=== PATIENT | female | born 1980 | race Caucasian/White ===

== ENCOUNTER 2017-04-25 12:21 | Emergency (ER) | payer OTHER ==
[~2017-04-25] VITALS: Ht 154.9 cm; Wt 72.7 kg
[~2017-04-25 12:21] MED LIST: ALBU17AE22 INH; ALBU8.5H4 IH; BUSP5TAB3 PO; Docusate Sodium PO; Ibuprofen PO; Oxycodone/Acetaminophen PO; PREN1TAB73 PO
[2017-04-25 12:29] VITALS: BP 120/79; PULSE 91; RESP 12; O2SAT 97
--- NOTE | 2017-04-25 14:41 | ED.REPORT ---
HPI-Back Pain Under 40 Date of Service April 25, 2017 ED Provider: Shakir Shaw DO The patient is a 36 year old female who presents to the emergency department complaining of worsening mid-back pain that has been constant over the last 2 weeks. The pain is similar in character and location to her chronic pain but the severity has increased over the last 2 weeks. She has had some bladder incontinence intermittently. She states she has urinated without feeling the urge to urinate. She has also noticed right foot numbness that was worse today. Yesterday when she was walking she felt like her legs were going to give out. The patient also reports episodes of pelvic "numbness and tightness" that has been going on for some time. She denies bowel incontinence, fever, chills or dysuria. She has been constipated over the last several days as well. She took Ativan prior to arrival because she does not do well with MRIs. Nursing Notes Stated Complaint: CAUDA EQUINA SYNDROME Chief Complaint: Back Pain or Injury Nursing Notes Reviewed: Yes Allergies: Coded Allergies: Sulfa (Sulfonamide Antibiotics) (Verified Allergy, Mild, rash, 04/25/17) Penicillins (Verified Allergy, Unknown, 06/26/11) amoxicillin (Verified Allergy, Unknown, 06/26/11) Scheduled ([Docusate Sodium]) 100 MG CAPSULE 100 MG PO BID Albuterol-Expunged Drug, Do Not Renew! (Albuterol-Expunged Drug, Do Not Renew!) 8.5 Gm Aero 8.5 GM INH PRN Buspirone (Buspirone) 5 Mg Tablet 5 MG PO TID Vit/Iron Fumarate/FA ( Vitamin Tablet) 1 Each Tablet 1 EACH PO DAILY Scheduled PRN ([Ibuprofen]) 800 MG TABLET 800 MG PO Q6H PRN PRN For Pain ([Oxycodone/Acetaminophen]) 1 TAB TABLET 1-2 TAB PO Q4H PRN PRN For Pain Albuterol HFA (Albuterol HFA) 8.5 Gm Hfa.aer.ad 2 PUFF IH Q4 PRN PRN For Shortness of Breath General Time Seen by MD: 14:40 Chief Complaint Back pain Hx Obtained From: Patient, Other family... Arrived By: Walk-in Sudden in Onset?: No Onset Occurred: More than a week ago... (2 weeks) Symptom Duration: Since onset Location: : Perispinal lumbar Quality: Painful Severity: Current: Moderate Severity: Maximum: Severe Recent Healthcare: No recent hospitalization, Recent doctor visit Similar Sx Previous: No Past Medical History Past Medical History Episodes of "pelvic numbness" Past Surgical History Knee surgery Weight loss surgery Family History Noncontributory Smoking History Unknown if Ever Smoker Social History Other Social History: Good social support, , Lives with children, Local resident Ambulatory Status Independent Review of Systems Review of Systems Note: +pelvic numbness Constitutional: Denies: Chills, Fever GI: Reports: Constipation Female: Reports: Incontinence, Denies: Dysuria Musculoskeletal: Reports: Back pain Neurologic: Reports: Bladder dysfunction, Numbness (right foot), Problem walking (felt like her legs were going to give out), Denies: Bowel dysfunction Complete sys rev & neg: except as marked. Physical Exam Initial Vital Signs Vital Signs (First) Date Time Temp Pulse Resp B/P Pulse Ox O2 Delivery O2 Flow Rate FiO2 04/25/17 12:29 36.2 91 12 120/79 97 Room Air Initial VS: Reviewed Head / Eyes: Atraumatic, Normocephalic, PERRL ENT: Mucous membranes moist, Conjunctiva normal, No scleral icterus Neck: Supple, Non-tender, Full range of motion Respiratory: Breath sounds normal, Clear to auscultation, No respiratory distress Cardiovascular: Regular rate & rhythm, Heart sounds normal, Intact distal pulses Abdomen / GI: Soft, Non-tender, No guarding, No rebound, No distention Lymphatic: No lymphadenopathy Extremities: Vascular intact, Neuro intact, No swelling, No tenderness Skin: Warm, Dry, No cyanosis Psychiatric: Mood/affect normal, Behavior normal, Normal thought content General/Constitutional: Awake, Alert, Cooperative Back: No muscle spasm Localized pain to L5-S1. Normal motor and sensory function. Neurologic: Oriented X3, Speech NL, No motor deficits, No sensory deficits, CN II - XII intact, Cerebellar NL, Memory NL Rectum / Perineum: Atraumatic, Sphincter tone NL, No saddle anesthesia Interpretation & Diagnostics Interpretation & Diagnostics: LUMBAR MRI IMPRESSION: This is considered to be a normal MRI of the lumbar spine. No bony abnormality is appreciated. No foraminal stenosis or central canal stenosis is seen. No disc abnormality is seen. No paraspinal soft tissue abnormality is seen Dictated by: Avery Barajas M.D. on 04/25/2017 at 17:30 Lab Results Interpretation Test 04/25/17 14:53 Hold Urine Received (Received) Re-Eval/Medical Decision Med Decision/Clinical Course Urinary incontinence with low back pain and subjective reports of paresthesias and leg weakness. Her physical exam in the ER is normal. Lumbar spine MRI is reassuring. Recommend close outpatient follow-up Source of Hx: Old records, Family Re-Evaluation/Progress #1: Time of Eval: 15:10 Re-Evaluation/Progress Note: Rechecked the patient. Discussed plan for MRI. Re-Evaluation/Progress #2: Time of Eval: 16:20 Re-Evaluation/Progress Note: The patient would not like to wait for the MRI. She would like to have it scheduled with her PCP. Discussed return to ED precautions. All questions were addressed. Re-Evaluation/Progress #3: Time of Eval: 16:30 Re-Evaluation/Progress Note: The autocad technician is here now. The patient is willing to wait. Re-Evaluation/Progress #4: Time of Eval: 17:46 Re-Evaluation/Progress Note: Rechecked the patient. Discussed MRI results, diagnosis, and plan for discharge. All questions were addressed. Counseled Regarding: Diagnosis, Need for follow-up, When/why to return to ED Discharge & Departure Impression: Primary Impression: Urinary incontinence Urinary Incontinence type: unspecified incontinence Qualified Code: R32 - Unspecified urinary incontinence Additional Impression: Low back pain Chronicity: chronic Back pain laterality: bilateral Sciatica presence: unspecified whether sciatica present Qualified Code: M54.5 - Low back pain Disposition: Home All VS Reviewed: Yes Condition: Stable Patient Instructions: Urinary Incontinence (ED) Additional Instructions: Thank you for entrusting us with your care today. The MRI today is completely normal. Followup with your regular doctor in the next few days for further evaluation of the incontinence. Return to the emergency department if you develop increased pain, loss of bowel control, focal weakness, inability to walk, or any other new or concerning symptoms. Referrals: Abril Man ARNP (PCP) Scribe Attestation Portions of this note were transcribed by Sydni Hansen. I, Dr. Shaw personally performed the history, physical exam and medical decision-making; I reviewed and confirmed the accuracy of the information in the transcribed note. Signed by: Hallie Lamas, 04/25/2017 at 1800. copies to: Abril Man,Shakir Kohli DO April 25, 2017 14:41 Sydni Hansen April 25, 2017 14:52
--- NOTE | 2017-04-25 17:36 | DRSVH ---
PROCEDURE: MRI LUMBAR SPINE WITHOUT CONTRAST ([id number]) INDICATIONS: urinary incontinence, leg weakness, parasthesias TECHNIQUE: Noncontrast sagittal T1 spin echo and T2 fast echo, sagittal STIR, axial T1 and T2 fast spin echo thr ough the lumbar spine. In cases with scoliosis, additional coronal T2 fast spin echo may be performe d. COMPARISON: None. FINDINGS: Image quality: Good Alignment and Curvature: There is normal bony alignment. Bone Marrow: Marrow is of normal overall signal. No acute vertebral body compression fractures. Spinal Cord: Conus medullaris terminates at the L1-2 disc level. Visualized cord demonstrates arcadio l signal and size. Paraspinous Soft Tissues: No paravertebral masses. L1-L2: Normal appearance. L2-L3: Normal appearance. L3-L4: Normal appearance. L4-L5: Normal appearance. L5-S1: Normal appearance. IMPRESSION: This is considered to be a normal MRI of the lumbar spine. No bony abnormality is appreci ated. No foraminal stenosis or central canal stenosis is seen. No disc abnormality is seen. No parasp inal soft tissue abnormality is seen Dictated by: Avery Barajas M.D. on 04/25/2017 at 17:30 Approved by: Avery Barajas M.D. on 04/25/2017 at 17:35
[2017-04-25 18:17] VITALS: BP 122/79; PULSE 91; RESP 12; O2SAT 97
== END 2017-04-25 18:17 | disposition home or self-care (01) ==
LOC: SED 12:21
DX: R32 Unspecified urinary incontinence (principal); M54.5 Low back pain; F17.200 Nicotine dependence, unspecified, uncomplicated; Z98.84 Bariatric surgery status; Z79.51 Long term (current) use of inhaled steroids; Z88.2 Allergy status to sulfonamides; Z88.0 Allergy status to penicillin